=== PATIENT | female | born 1965 | race Caucasian/White ===

== ENCOUNTER 2023-01-10 13:54 | Outpatient (CLI) | payer BC, SELFPAY ==
--- NOTE | 2023-01-10 14:00 | CRLHL7_ITS ---
For Patients: As a result of the Century Cures Act, medical imaging exams and procedure reports are released immediately into your electronic medical record. You may view this report before your referring provider. If you have questions, please contact your health care provider. BILATERAL BREAST MRI WITHOUT AND WITH GADOLINIUM, 01/10/2023 CLINICAL HISTORY: 57-year-old female with LEFT nipple inversion, recent mammogram and ultrasound were negative. INDICATION FOR BREAST MRI: Problem-solving breast MRI. COMPARISON STUDIES: BILATERAL mammogram 12/11/2022, 02/19/2022. CONTRAST: 15 cc of Dotarem. TECHNIQUE: The patient was positioned prone using a breast coil. Multiple imaging sequences were obtained using 1-1.5 mm thick slices with no gap. The image sequences include T2-weighted STIR in the axial plane, T1-weighted nonfat-saturated gradient echo in the axial plane, pre- and post-contrast T1-weighted FLASH 3D with fat suppression in the axial plane, and T1-weighted FLASH high resolution 3D with fat suppression in the sagittal plane. Image post-processing was performed on a [employer] workstation. Complex 3D rendering including maximum intensity projections (MIPS) and volumetric renderings were obtained to optimize visualization of the extent of pathology and relationship to the nipple, skin, and chest wall. This aids in determining feasibility of breast conservation surgery. Subtraction, multiplanar reconstruction, mean curve determination, and angiogenesis mapping were also performed. The study was technically adequate. FINDINGS: Amount of Fibroglandular Tissue: Scattered fibroglandular tissue. Breast Background Enhancement: Mild to moderate. RIGHT Breast: No suspicious areas of enhancement. LEFT Breast: No suspicious areas of enhancement. Lymph Nodes: No adenopathy. IMPRESSIONS AND RECOMMENDATIONS: Negative, there is no MRI evidence of malignancy in either breast. Clinical follow-up. Continue annual screening mammography. BI-RADS Category 1: Negative Dictated by Malou Elias MD @ 01/14/2023 1:13:00 PM basilia/Dictated by: Malou Elias MD @ 01/14/2023 1:12:00 PM (Electronically Signed)
== END 2023-01-10 13:55 | disposition home or self-care (01) ==
PROVIDERS: PCP Family Medicine; Visit Provider Surgery
DX: N64.59 Other signs and symptoms in breast (principal)
CPT/HCPCS: 77049; A9575